=== PATIENT | female | born 1985 | race Caucasian/White ===

== ENCOUNTER 2019-02-15 16:50 | Outpatient (CLI) | payer OTHER | END 2019-02-15 19:20 | disposition home or self-care (01) | LOC: OBT 16:50 → L-D 16:50 → OBT 19:20 | DX: O47.02 False labor before 37 completed weeks of gestation, second trimester (principal); O09.522 Supervision of elderly multigravida, second trimester; Z3A.23 23 weeks gestation of pregnancy | CPT/HCPCS: Z7500 ==